=== PATIENT | male | born 1980 | race Caucasian/White ===

== ENCOUNTER → 2019-06-19 15:31 | Outpatient (CLI) | payer OTHER, SELFPAY ==
--- NOTE | 2019-06-19 | DI.RAD.S_ITS ---
PROCEDURE: XR FINGER RT MIN 2V INDICATIONS: 5TH PHALARGE DISLOCATION TECHNIQUE: AP hand, 2 views of the fifth finger(s) acquired. COMPARISON: None. FINDINGS: Bones: No fractures or dislocations. No suspicious bony lesions. Soft tissues: No suspicious soft tissue calcifications. IMPRESSION: No acute fracture. No osseous lesion. If clinical suspicion and/orsymptoms persist, further assessment with repeat plainfilms, or advanced imaging (e.g., CT, MRI, or bone scan) may be helpful for further assessment. Dictated by: Kemal SPARROW Interpreted: Max Escobar MD on 06/19/2019 at 17:07 Approved by: Max Escobar M.D. on 06/20/2019 at 9:20
== END ==
PROVIDERS: Visit Provider Physician Assistant Medical
DX: S63.256A Unspecified dislocation of right little finger, initial encounter (principal)
CPT/HCPCS: 73140